=== PATIENT | male | born 1960 | race Caucasian/White ===

== ENCOUNTER 2023-03-20 13:58 | Outpatient (CLI) | payer BC, OTHER | END 2023-03-20 13:59 | disposition home or self-care (01) | LOC: CSHMRI 13:58 | PROVIDERS: ATTEND Urology | DX: C61 Malignant neoplasm of prostate (principal); C79.51 Secondary malignant neoplasm of bone | CPT/HCPCS: 72197; 82565 ==

== ENCOUNTER 2024-01-29 11:21 | Outpatient (CLI) | payer OTHER, MEDICAID ==
[~2024-01-29 11:21] MED LIST: Magnevist 469MG/ML 20 ML VIAL ONE
== END 2024-01-29 11:22 | disposition home or self-care (01) ==
LOC: CSHMRI 11:21
PROVIDERS: ATTEND Internal Medicine Hematology & Oncology
DX: C61 Malignant neoplasm of prostate (principal); C79.51 Secondary malignant neoplasm of bone
CPT/HCPCS: 72197